=== PATIENT | female | born 1975 | race Caucasian/White ===

== ENCOUNTER 2017-08-22 10:16 | Emergency (ER) | payer MEDICAID ==
[~2017-08-22] VITALS: Ht 157.5 cm; Wt 81.8 kg
[2017-08-22] MEDS ORDERED: GLIP5 PO (10:24)
[2017-08-22] MEDS ORDERED: METF500T4 PO (10:24)
[2017-08-22 10:28] LABS: GLUCOSE,POINT OF CARE 334 MG/DL (70-110)
[2017-08-22] MEDS ORDERED: LIDOCAINE HCL 1%/EPI 1:200,000/PF 10 ML VIAL INJ ONE (12:00)
[2017-08-22] MEDS ORDERED: POVIDONE-IODINE 10% 15 ML SOLUTION UD TP ONE (12:00)
[2017-08-22] MEDS ORDERED: ACETAMINOPHEN 500 MG TABLET PO ONE (13:15)
[2017-08-22 13:51] VITALS: BP 121/64
== END 2017-08-22 14:30 | disposition home or self-care (01) ==
LOC: EMS 10:19
DX: L02.211 Cutaneous abscess of abdominal wall (principal); E11.9 Type 2 diabetes mellitus without complications; F17.210 Nicotine dependence, cigarettes, uncomplicated; Z71.6 Tobacco abuse counseling; Z79.84 Long term (current) use of oral hypoglycemic drugs
CPT/HCPCS: 10060; 82962; 99283; 99406; J3490

== ENCOUNTER 2017-08-24 20:09 | Emergency (ER) | payer MEDICAID ==
[~2017-08-24] VITALS: Ht 157.5 cm; Wt 81.8 kg
[~2017-08-24 20:09] MED LIST: GLIP5 PO; METF500T4 PO
[2017-08-24] MEDS ORDERED: BACI30OI10 PO (20:35)
[2017-08-24 20:38] LABS: GLUCOSE,POINT OF CARE 363 MG/DL (70-110)
[2017-08-24 21:55] VITALS: BP 102/74
== END 2017-08-24 22:04 | disposition home or self-care (01) ==
LOC: EMS 20:13
DX: Z48.00 Encounter for change or removal of nonsurgical wound dressing (principal); E11.9 Type 2 diabetes mellitus without complications; F17.210 Nicotine dependence, cigarettes, uncomplicated
CPT/HCPCS: 82962; 99282; 99406

== ENCOUNTER 2018-02-12 20:32 | Emergency (ER) | payer SELFPAY ==
[~2018-02-12] VITALS: Ht 157.5 cm; Wt 81.8 kg
[~2018-02-12 20:32] MED LIST changes: +BACI30OI10 PO; -METF500T4 PO; +METF500T6 PO
[2018-02-12 20:53] LABS: GLUCOSE,POINT OF CARE 375 MG/DL (70-110)
[2018-02-12] MEDS ORDERED: POVIDONE-IODINE 10% 15 ML SOLUTION UD TP ONE (21:15)
[2018-02-12] MEDS ORDERED: LIDOCAINE HCL/PF 1% 5 ML VIAL INJ ONE (21:15)
[2018-02-12] MEDS ORDERED: CEPHALEXIN MONOHYDRATE 500 MG CAPSULE PO ONE (21:15)
[2018-02-12] MEDS ORDERED: HYDROCODONE/ACETAMINOPHEN 5-325 MG TABLET PO ONE (21:15)
[2018-02-12] MEDS ORDERED: SULFAMETHOX/TRIMETH DS 800-160 MG/TABLET PO ONE (21:15)
[2018-02-12 22:24] VITALS: BP 135/81
== END 2018-02-12 22:24 | disposition home or self-care (01) ==
LOC: EMS 20:33
DX: L02.214 Cutaneous abscess of groin (principal); F17.210 Nicotine dependence, cigarettes, uncomplicated; E11.9 Type 2 diabetes mellitus without complications; Z79.84 Long term (current) use of oral hypoglycemic drugs
CPT/HCPCS: 10060; 82962; 99284; 99406; J3490

== ENCOUNTER 2018-02-14 21:14 | Emergency (ER) | payer SELFPAY ==
[~2018-02-14] VITALS: Ht 157.5 cm; Wt 81.8 kg
[~2018-02-14 21:14] MED LIST changes: -BACI30OI10 PO
[2018-02-14 21:44] VITALS: BP 115/79
[2018-02-14 21:53] LABS: GLUCOSE,POINT OF CARE 306 MG/DL (70-110)
== END 2018-02-15 00:41 | disposition left against medical advice (07) ==
LOC: EMS 21:15
DX: Z48.00 Encounter for change or removal of nonsurgical wound dressing (principal); Z53.21 Procedure and treatment not carried out due to patient leaving prior to being seen by health care provider

== ENCOUNTER 2018-02-15 07:39 | Emergency (ER) | payer SELFPAY ==
[~2018-02-15] VITALS: Ht 157.5 cm; Wt 81.8 kg
[2018-02-15 07:53] LABS: GLUCOSE,POINT OF CARE 418 MG/DL (70-110)
[2018-02-15] MEDS ORDERED: INSULIN REGULAR, HUMAN 100 UNITS/ML IVP ONE (08:45)
[2018-02-15] MEDS ORDERED: SODIUM CHLORIDE 0.9% 1,000 ML IV ONE (08:45)
[2018-02-15 09:05] LABS: ANION GAP 10 mmol/L (8-16); CALCIUM, TOTAL 8.9 mg/dL (8.8-10.5); CARBON DIOXIDE 24 mmol/L (22-29); CHLORIDE 98 mmol/L (98-107); CREATININE 0.76 mg/dL (0.60-1.30); GLOMERULAR FILTR. RATE CALC > 60 mL/min (>60); GLUCOSE,RANDOM 337 mg/dL (70-110); POTASSIUM 4.4 mmol/L (3.5-5.1); SODIUM SERUM 132 mmol/L (136-145); UREA NITROGEN, BLOOD 10 mg/dL (7-18)
[2018-02-15 10:39] LABS: GLUCOSE,POINT OF CARE 186 MG/DL (70-110)
[2018-02-15 10:42] VITALS: BP 117/74
== END 2018-02-15 10:58 | disposition home or self-care (01) ==
LOC: EMS 07:40
DX: E11.65 Type 2 diabetes mellitus with hyperglycemia (principal); L02.214 Cutaneous abscess of groin; F17.210 Nicotine dependence, cigarettes, uncomplicated; Z48.00 Encounter for change or removal of nonsurgical wound dressing; Z79.84 Long term (current) use of oral hypoglycemic drugs
CPT/HCPCS: 36415; 80048; 82948; 82962; 96361; 96374; 99285; 99406; J1815; J7030

== ENCOUNTER 2018-03-01 09:06 | Emergency (ER) | payer MEDICAID ==
[~2018-03-01] VITALS: Ht 165.1 cm; Wt 84.1 kg
[~2018-03-01 09:06] MED LIST changes: +METF-960 PO; -METF500T6 PO
[2018-03-01 09:19] LABS: GLUCOSE,POINT OF CARE 303 MG/DL (70-110)
[2018-03-01 09:46] VITALS: BP 136/93
== END 2018-03-01 09:53 | disposition home or self-care (01) ==
LOC: EMS 09:10
DX: Z48.01 Encounter for change or removal of surgical wound dressing (principal); E11.65 Type 2 diabetes mellitus with hyperglycemia; F17.210 Nicotine dependence, cigarettes, uncomplicated; Z71.6 Tobacco abuse counseling; Z79.899 Other long term (current) drug therapy
CPT/HCPCS: 99282; 99406

== ENCOUNTER 2022-04-09 20:18 | Emergency (ER) | payer MEDICAID ==
[~2022-04-09] VITALS: Ht 157.5 cm; Wt 77.3 kg
[~2022-04-09 20:18] MED LIST changes: -GLIP5 PO; +GLIP5TAB12 PO; +METF-1211 PO; -METF-960 PO
[2022-04-10] MEDS: BUPIVACAINE HCL/PF 0.25% 10 ML VIAL SQ ONE (00:26)
[2022-04-10] MEDS ORDERED: SULF-261 PO (00:27)
[2022-04-10] MEDS ORDERED: CEPH-558 PO (00:27)
[2022-04-10] MEDS ORDERED: IBUP-2070 PO (00:27)
[2022-04-10] MEDS: POVIDONE-IODINE 10% 120 ML SOLUTION TP ONE (00:27)
[2022-04-10 00:32] VITALS: BP 132/74
== END 2022-04-10 02:10 | disposition home or self-care (01) ==
LOC: EMS 20:20
DX: L02.412 Cutaneous abscess of left axilla (principal); E11.9 Type 2 diabetes mellitus without complications; F17.210 Nicotine dependence, cigarettes, uncomplicated
CPT/HCPCS: 99283; 10060; 82962; 36415; J3490

== ENCOUNTER 2022-04-12 10:19 | Emergency (ER) | payer MEDICAID ==
[~2022-04-12] VITALS: Ht 157.5 cm; Wt 81.0 kg
[~2022-04-12 10:19] MED LIST changes: +CEPH-558 PO; +IBUP-2070 PO; +SULF-261 PO
[2022-04-12 11:06] VITALS: BP 147/92
== END 2022-04-12 12:31 | disposition home or self-care (01) ==
LOC: EMS 10:31
DX: Z48.00 Encounter for change or removal of nonsurgical wound dressing (principal); E11.9 Type 2 diabetes mellitus without complications; F17.210 Nicotine dependence, cigarettes, uncomplicated
CPT/HCPCS: 99282; Z7502